=== PATIENT | male | born 1975 | race Caucasian/White ===

== ENCOUNTER 2018-03-02 15:19 | Day surgery (SDC) | payer OTHER ==
[~2018-03-02] VITALS: Ht 185.4 cm; Wt 81.1 kg
[2018-03-02 15:49] LABS: MICROSCOPIC NOT IND
[2018-03-02 15:53] LABS: CULTURE INDICATED? NO
[2018-03-02] MEDS ORDERED: SODIUM CHLORIDE FLUSH 10ML SYR IVF ONE (16:00)
[2018-03-02 16:02] LABS: ALANINE AMINOTRANSFERASE 20 U/L (12-78); CALCIUM 8.9 mg/dL (8.5-10.1); CREATININE 1.16 mg/dL (0.7-1.3)
[2018-03-02 16:04] LABS: BASOPHILS # (AUTO) 0.03 x10^3/uL (0-0.1); BASOPHILS % (AUTO) 0 % (0-1); EOSINOPHILS # (AUTO) 0.03 x10^3/uL (0-0.4); EOSINOPHILS % (AUTO) 0 % (1-7); LYMPHOCYTES # (AUTO) 2.31 x10^3/uL (1-3.4); LYMPHOCYTES % (AUTO) 25 % (22-44); MD NO; MEAN CORPUSCULAR HEMOGLOBIN 32.8 pg (27.5-34.5); MEAN CORPUSCULAR HGB CONC 34.6 g/dL (33.2-36.2); MEAN CORPUSCULAR VOLUME 94.7 fL (81-97); MEAN PLATELET VOLUME 7.8 fL (7.4-10.4); MONOCYTES # (AUTO) 0.64 x10^3/uL (0.2-0.8); MONOCYTES % (AUTO) 7 % (2-9); NEUTROPHILS # (AUTO) 6.28 x10^3/uL (1.8-6.8); NEUTROPHILS % (AUTO) 68 % (42-75); PLATELET COUNT 244 x10^3/uL (130-400); RED BLOOD COUNT 4.79 x10^6/uL (4.38-5.82); RED CELL DISTRIBUTION WIDTH 13.9 % (9.4-14.8)
[2018-03-02 17:03] LABS: ALKALINE PHOSPHATASE 55 U/L (45-117); ANION GAP 9 mmol/L (5-15); CHLORIDE 104 mmol/L (98-107)
[2018-03-02] MEDS ORDERED: OMNIPAQUE 350 MG/ML, 100ML BOTTLE ONE (17:35)
[2018-03-02] MEDS ORDERED: SODIUM CHLORIDE 0.9% 1,000ML IVBOLUS ONE (18:30)
[2018-03-02] MEDS ORDERED: CEFOTETAN PMX 1GM/50ML 50 ML IV ONE (18:30)
[2018-03-02] MEDS ORDERED: SODIUM CHLORIDE 0.9% 1,000 ML IV ONE ×2 (18:30→18:42)
[2018-03-02] MEDS ORDERED: CEFOTETAN PMX 1GM/50ML 50 ML ONE ×2 (18:44→19:31)
[2018-03-02] MEDS ORDERED: BUPIVACAINE/PF-EPI 0.5% 1:200K ONE (18:46)
[2018-03-02] MEDS ORDERED: SODIUM CHLORIDE FLUSH 10ML SYR IVF PRN (19:00)
[2018-03-02] MEDS ORDERED: MIDAZOLAM 1 MG/ML, 2ML ONE (19:09)
[2018-03-02] MEDS ORDERED: FENTANYL PF 100 MCG/2ML ONE (19:10)
[2018-03-02] MEDS ORDERED: KETOROLAC 30 MG/1 ML ONE ×2 (19:14→19:31)
[2018-03-02] MEDS ORDERED: CEFAZOLIN 1,000 MG ONE (19:14)
[2018-03-02] MEDS ORDERED: ROCURONIUM 10 MG/ML,10ML ONE (19:14)
[2018-03-02] MEDS ORDERED: PROPOFOL 10 MG/ML, 20ML ONE (19:28)
[2018-03-02] MEDS ORDERED: BUPIVACAINE/PF-EPI 0.5% 1:200K IM ONE (19:29)
[2018-03-02] MEDS ORDERED: EPHEDRINE 50 MG/ML, 1ML IVPush PRN (19:30)
[2018-03-02] MEDS ORDERED: HYDROmorphone 1 MG/ML, 1ML IV PRN (19:30)
[2018-03-02] MEDS ORDERED: hydrALAzine 20 MG/ML, 1ML IV PRN (19:30)
[2018-03-02] MEDS ORDERED: ONDANSETRON 2MG/ML, 2ML IV PRN (19:30)
[2018-03-02] MEDS ORDERED: METOPROLOL 1 MG/ML, 5ML IV PRN (19:30)
[2018-03-02] MEDS ORDERED: LABETALOL 5MG/ML, 20ML IV PRN (19:30)
[2018-03-02] MEDS ORDERED: FENTANYL PF 100 MCG/2ML IV PRN (19:30)
[2018-03-02] MEDS ORDERED: ALBUTEROL SULFATE 2.5 MG/3 ML NPPB PRN (19:30)
[2018-03-02] MEDS ORDERED: ACETAMINOPHEN 325 MG TABLET PO PRN (19:30)
[2018-03-02] MEDS ORDERED: PROMETHAZINE 25 MG/ML, 1ML IV PRN (19:30)
[2018-03-02] MEDS ORDERED: MEPERIDINE/PF 25MG/0.5ML IVPush PRN (19:30)
[2018-03-02] MEDS ORDERED: OXYcodone 5 MG/5 ML ORAL.SOL UDC PO PRN (19:30)
[2018-03-02] MEDS ORDERED: ONDANSETRON 2MG/ML, 2ML ONE (19:31)
[2018-03-02] MEDS ORDERED: DEXAMETHASONE 4 MG/ML, 1ML ONE (19:31)
[2018-03-02] MEDS ORDERED: GLYCOPYRROLATE 0.2MG/1ML, 5ML ONE (19:31)
[2018-03-02] MEDS ORDERED: NEOSTIGMINE 1 MG/ML, 10ML ONE (19:31)
[2018-03-02] MEDS ORDERED: OXYcodone 5 MG/5 ML ORAL.SOL UDC ONE (20:11)
[2018-03-02] MEDS ORDERED: MEPERIDINE/PF 50 MG/ML ONE (20:25)
[2018-03-02 20:45] VITALS: BP 131/86
[2018-03-02] MEDS ORDERED: LACTATED RINGERS 1,000 ML IV SCH (20:55)
[2018-03-02] MEDS ORDERED: HYDR-3237 PO (22:10)
[2018-03-02] MEDS ORDERED: CEPH-368 PO (22:11)
[2018-03-02 22:15] VITALS: BP 135/82
== END 2018-03-02 22:40 ==
LOC: ED 17:37 → OR 19:00 → EDIP 20:24 → UNDOADMIN 20:24 → 4NOR 20:40 → EDIP 20:40 → OR 22:40 → UNDODISIN 22:40
PROVIDERS: ATTEND Surgery
DX: K35.80 Unspecified acute appendicitis (principal)
CPT/HCPCS: 36415; 44970; 74177; 80053; 81003; 83690; 85025; 88304; 99285; J0690; J1100; J1885; J2175; J2250; J2405; J2704; J2710; J3010; J3490; Q9967; S0074

== ENCOUNTER 2021-02-01 14:40 | Emergency (ER) | payer SELFPAY ==
[~2021-02-01] VITALS: Ht 182.9 cm; Wt 76.7 kg
[~2021-02-01 14:40] MED LIST: CEPH-368 PO; HYDR-3237 PO
[2021-02-01] MEDS ORDERED: KETOROLAC 30 MG/1 ML ONE (15:06)
[2021-02-01] MEDS ORDERED: KETOROLAC 30 MG/1 ML IM ONE (15:30)
[2021-02-01 15:33] LABS: BASOPHILS % (AUTO) 0 % (0-1); EOSINOPHILS % (AUTO) 0 % (1-7); LYMPHOCYTES % (AUTO) 24 % (22-44); MEAN CORPUSCULAR HEMOGLOBIN 32.6 pg (27.5-34.5); MEAN CORPUSCULAR HGB CONC 34.6 g/dL (33.2-36.2); MONOCYTES % (AUTO) 10 % (2-9); NEUTROPHILS % (AUTO) 66 % (42-75); PLATELET COUNT 383 x10^3/uL (130-400); RED BLOOD COUNT 4.97 x10^6/uL (4.38-5.82); RED CELL DISTRIBUTION WIDTH 12.4 % (9.4-14.8)
[2021-02-01 15:45] LABS: ALBUMIN 3.5 g/dL (3.4-5.0); ANION GAP 7 mmol/L (5-15); CALCIUM 8.7 mg/dL (8.5-10.1); CHLORIDE 105 mmol/L (98-107)
[2021-02-01 15:46] LABS: CREATININE 0.94 mg/dL (0.7-1.3)
[2021-02-01 15:52] VITALS: BP 129/89
--- NOTE | 2021-02-01 15:53 | NUR ---
us at bedside now.
== END 2021-02-01 17:39 | disposition home or self-care (01) ==
LOC: ED 16:30
DX: L03.115 Cellulitis of right lower limb (principal)
CPT/HCPCS: 36415; 80048; 82040; 85025; 99285

== ENCOUNTER 2021-02-10 11:21 | Emergency (ER) | payer SELFPAY ==
[2021-02-10 11:27] VITALS: BP 149/83
--- NOTE | 2021-02-10 11:40 | NUR ---
pt presents to ed with c/o R foot pain, states they were seen here 9 days ago and has not had any relief/improvement. cms intact, full ROM, pedal pulses felt bilaterally.
--- NOTE | 2021-02-10 11:45 | NUR ---
imelda Ambrose at bedside for eval
[2021-02-10] MEDS ORDERED: ONDANSETRON 2MG/ML, 2ML ONE (11:55)
[2021-02-10] MEDS ORDERED: ONDANSETRON 2MG/ML, 2ML IVPush ONE (12:00)
--- NOTE | 2021-02-10 12:11 | NUR ---
PIV placed, labs drawn, pt medicated pr order, tolerated well.
[2021-02-10 12:12] LABS: HCT (SEDRATE) 45.4 % (39.2-51.8)
[2021-02-10] MEDS ORDERED: KETOROLAC 30 MG/1 ML ONE (12:16)
[2021-02-10 12:29] LABS: C-REACTIVE PROTEIN, QUANT 1.6 mg/dL (0.02-0.49)
--- NOTE | 2021-02-10 12:29 | NUR ---
pt medicated per order, tolerated well, nadn.
[2021-02-10] MEDS ORDERED: KETOROLAC 30 MG/1 ML IM ONE (12:30)
[2021-02-10] MEDS ORDERED: KETOROLAC 30 MG/1 ML IVPush ONE ×2 (12:30)
--- NOTE | 2021-02-10 14:23 | NUR ---
pt educated on discharge, verbalized understanding. ambulatory to discharge with steady gait.
== END 2021-02-10 14:25 | disposition home or self-care (01) ==
LOC: ED 11:53
DX: M79.671 Pain in right foot (principal)
CPT/HCPCS: 36415; 84550; 85651; 86140; 96374; 96375; 99284; J1885; J2405